=== PATIENT | male | born 1950 | race Caucasian/White ===

== ENCOUNTER 2018-02-28 09:30 | Day surgery (SDC) | payer OTHER ==
[2018-02-21 11:18] VITALS: BMI 27.3
[~2018-02-28 09:30] MED LIST: LACTATED RINGERS 1,000 ML IV SCH
[2018-02-28] MEDS ORDERED: LIDOCAINE 1% 20 ML VIAL (10MG/ML) FOR IV START INTRADERMA ONE (10:35)
[2018-02-28] MEDS ORDERED: PROPOFOL 10 MG/ML 20 ML VIAL IV ONE (10:36)
[2018-02-28 10:37] VITALS: RESP 16; TEMP 98.4
--- NOTE | 2018-02-28 10:39 | P.GSHP ---
History of Present Illness H&P Date: 02/28/18 Chief Complaint: History of colon polyps This is a 67-year-old male who presents today for colonoscopy. Patient has history of colon polyps. His last colonoscopy was 4 years ago. Past Medical History Past Medical History: COPD, GERD/Reflux, Hyperlipidemia, Hypertension Additional Past Medical History / Comment(s): GOUT. CURRENTLY HAS HIVES OF UNKNOWN ORIGIN-RESOLVED AT THIS TIME History of Any Multi-Drug Resistant Organisms: None Reported Past Surgical History: Back Surgery Additional Past Surgical History / Comment(s): COLONOSCOPY Past Anesthesia/Blood Transfusion Reactions: No Reported Reaction Smoking Status: Current every day smoker - Past Family History Mother Family Medical History: Cancer Additional Family Medical History / Comment(s): BREAST Medications and Allergies Home Medications Medication Instructions Recorded Confirmed Type Albuterol Sulfate [Proair 1 puff PO DAILY PRN 01/17/18 02/21/18 History Respiclick] Alfuzosin HCl [Uroxatral ER] 10 mg PO HS 01/17/18 02/21/18 History Allopurinol [Zyloprim] 300 mg PO DAILY 01/17/18 02/21/18 History Aspirin EC [Ecotrin Low Dose] 81 mg PO DAILY 01/17/18 02/21/18 History Atorvastatin [Lipitor] 80 mg PO HS 01/17/18 02/21/18 History Budesonide/Formoterol Fumarate 2 puff INHALATION BID 01/17/18 02/21/18 History [Symbicort 80-4.5 Mcg Inhaler] Loratadine [Claritin] 10 mg PO DAILY 01/17/18 02/21/18 History Multivitamin [Men's Multi-Vitamin] 1 each PO DAILY 01/17/18 02/21/18 History Naproxen 500 mg PO DAILY 01/17/18 02/21/18 History PARoxetine [Paxil] 20 mg PO DAILY 01/17/18 02/21/18 History Pramipexole Di-HCl [Mirapex] 0.167 mg PO TID 01/17/18 02/21/18 History Tiotropium [place] [Spiriva] 1 cap INHALATION DAILY 01/17/18 02/21/18 History amLODIPine BESYLATE [Norvasc] 5 mg PO HS 01/17/18 02/21/18 History guaiFENesin 200 mg PO DAILY PRN 01/17/18 02/21/18 History Allergies Allergy/AdvReac Type Severity Reaction Status Date / Time No Known Allergies Allergy Verified 02/28/18 10:18 Surgical - Exam Vital Signs Temp Pulse Resp BP Pulse Ox 98.4 F 94 16 147/79 94 L 02/28/18 10:35 02/28/18 10:35 02/28/18 10:35 02/28/18 10:35 02/28/18 10:35 - General well developed, no distress - Eyes PERRL - ENT normal pinna - Neck no masses - Respiratory normal expansion - Cardiovascular Rhythm: regular - Abdomen Abdomen: soft, non tender Assessment and Plan Assessment: History of colon polyps. We'll perform colonoscopy.
[2018-02-28 10:41] LABS: Glucose,Whole Blood 108 mg/dL (75-99)
--- NOTE | 2018-02-28 10:54 | P.OP ---
Date of Procedure: 02/28/18 Preoperative Diagnosis: History of colon polyp Postoperative Diagnosis: Rectal polyp Procedure(s) Performed: Colonoscopy Anesthesia: MAC Surgeon: Pan Heath Pathology: other (Rectal polyp) Condition: stable Disposition: PACU Description of Procedure: The patient's placed on the endoscopy table in the lateral position. He received IV sedation. Digital rectal exam was performed which revealed no abnormalities. Flexible colonoscope was then placed patient anus and passed throughout the entire colon. The ileocecal valve was visualized. Cecum, ascending and transverse colon appeared normal. The descending and sigmoid colon appeared normal. In the rectum there was a small polyp seen this removed a combination of snare and the cold forcep. Scope was withdrawn for patient.
[2018-02-28 11:30] VITALS: BP 148/89; PULSE 81
== END 2018-02-28 12:06 | disposition home or self-care (01) ==
LOC: ORWHC2ENDO 09:30
PROVIDERS: ATTEND Surgery
DX: Z12.11 Encounter for screening for malignant neoplasm of colon (principal); K62.1 Rectal polyp; K21.9 Gastro-esophageal reflux disease without esophagitis; J44.9 Chronic obstructive pulmonary disease, unspecified; Z86.010 Personal history of colon polyps; I10 Essential (primary) hypertension; E78.5 Hyperlipidemia, unspecified; M10.9 Gout, unspecified; F17.200 Nicotine dependence, unspecified, uncomplicated; Z79.82 Long term (current) use of aspirin; Z79.899 Other long term (current) drug therapy; Z79.1 Long term (current) use of non-steroidal anti-inflammatories (NSAID); Z79.51 Long term (current) use of inhaled steroids
CPT/HCPCS: 88305; 45385; J2704; 45380

== ENCOUNTER 2018-05-17 12:01 | Emergency (ER) | payer OTHER, MEDICARE ==
[2018-05-17 12:18] VITALS: BP 155/80; PULSE 92; RESP 18; TEMP 98.1
--- NOTE | 2018-05-17 13:15 | US ---
EXAMINATION TYPE: US venous doppler duplex LE LT DATE OF EXAM: 05/17/2018 1:09 PM COMPARISON: NONE CLINICAL HISTORY: Pain. SIDE PERFORMED: Left TECHNIQUE: The lower extremity deep venous system is examined utilizing real time linear array sonog jorge with graded compression, doppler sonography and color-flow sonography. VESSELS IMAGED: External Iliac Vein (EIV) Common Femoral Vein Deep Femoral Vein Greater Saphenous Vein * Femoral Vein Popliteal Vein Small Saphenous Vein * Proximal Calf Veins (* superficial vessels) Left Leg: Negative for DVT Grayscale, color doppler, spectral doppler imaging performed of the deep veins of the left lower extr emity. There is normal flow, compressibility, vascular waveforms. IMPRESSION: No ultrasound evidence for acute DVT in the left lower extremity.
--- NOTE | 2018-05-17 14:51 | ED ---
General Adult HPI - General Chief complaint: Recheck/Abnormal Lab/Rx Stated complaint: [facility] Time Seen by Provider: 05/17/18 12:15 Source: patient, RN notes reviewed Mode of arrival: ambulatory Limitations: no limitations - History of Present Illness Initial comments: This is a 67-year-old male who presents emergency Department because he's had bilateral leg swelling for a week. Patient states the swelling the left is a little bit bigger than the right but both have been swelling and normally that does not occur. Patient states he is a smoker. Patient states she has COPD. Patient states she also put salt on everything. Patient states he saw his primary medical care doctor and they wanted him to come in and get a ultrasound to rule out DVT in the left leg. Patient has been given a prescription for Lasix to start tonight and also is been given a prescription to be fitted for some stockings. Patient denies any difficulty breathing or shortness of breath patient denies any chest pain. Patient denies any previous cardiac problems. Patient has any history of congestive heart today. Patient denies any calf pain. He denies any injury or trauma. Patient denies any lightheadedness dizziness or near syncopal episode. - Related Data Home Medications Medication Instructions Recorded Confirmed Albuterol Sulfate [Proair 1 puff PO DAILY PRN 01/17/18 02/21/18 Respiclick] Alfuzosin HCl [Uroxatral ER] 10 mg PO HS 01/17/18 02/21/18 Allopurinol [Zyloprim] 300 mg PO DAILY 01/17/18 02/21/18 Aspirin EC [Ecotrin Low Dose] 81 mg PO DAILY 01/17/18 02/21/18 Atorvastatin [Lipitor] 80 mg PO HS 01/17/18 02/21/18 Budesonide/Formoterol Fumarate 2 puff INHALATION BID 01/17/18 02/21/18 [Symbicort 80-4.5 Mcg Inhaler] Loratadine [Claritin] 10 mg PO DAILY 01/17/18 02/21/18 Multivitamin [Men's Multi-Vitamin] 1 each PO DAILY 01/17/18 02/21/18 Naproxen 500 mg PO DAILY 01/17/18 02/21/18 PARoxetine [Paxil] 20 mg PO DAILY 01/17/18 02/21/18 Pramipexole Di-HCl [Mirapex] 0.167 mg PO TID 01/17/18 02/21/18 Tiotropium [place] [Spiriva] 1 cap INHALATION DAILY 01/17/18 02/21/18 amLODIPine BESYLATE [Norvasc] 5 mg PO HS 01/17/18 02/21/18 guaiFENesin 200 mg PO DAILY PRN 01/17/18 02/21/18 Allergies Allergy/AdvReac Type Severity Reaction Status Date / Time lisinopril AdvReac Nausea & Verified 05/17/18 12:19 Vomiting Review of Systems ROS Statement: Those systems with pertinent positive or pertinent negative responses have been documented in the HPI. ROS Other: All systems not noted in ROS Statement are negative. Past Medical History Past Medical History: COPD, GERD/Reflux, Hyperlipidemia, Hypertension Additional Past Medical History / Comment(s): GOUT. CURRENTLY HAS HIVES OF UNKNOWN ORIGIN-RESOLVED AT THIS TIME History of Any Multi-Drug Resistant Organisms: None Reported Past Surgical History: Back Surgery Additional Past Surgical History / Comment(s): COLONOSCOPY Past Anesthesia/Blood Transfusion Reactions: No Reported Reaction Past Psychological History: Depression Smoking Status: Current every day smoker Past Alcohol Use History: Daily Past Drug Use History: None Reported - Past Family History Mother Family Medical History: Cancer Additional Family Medical History / Comment(s): BREAST General Exam - General Exam Comments Initial Comments: GENERAL: Patient is well-developed and well-nourished. Patient is nontoxic and well- hydrated and is in no acute distress. ENT: Neck is soft and supple. No significant lymphadenopathy is noted. Oropharynx is clear. Moist mucous membranes. Neck has full range of motion without eliciting any pain. EYES: The sclera were anicteric and conjunctiva were pink and moist. Extraocular movements were intact and pupils were equal round and reactive to light. Eyelids were unremarkable. PULMONARY: Unlabored respirations. Good breath sounds bilaterally. No audible rales rhonchi or wheezing was noted. CARDIOVASCULAR: There is a regular rate and rhythm without any murmurs gallops or rubs. ABDOMEN: Soft and nontender with normal bowel sounds. No palpable organomegaly was noted. There is no palpable pulsatile mass. SKIN: Skin is clear with no lesions or rashes and otherwise unremarkable. NEUROLOGIC: Patient is alert and oriented x3. Cranial nerves II through XII are grossly intact. Motor and sensory are also intact. Normal speech, volume and content. Symmetrical smile. MUSCULOSKELETAL: Normal extremities with adequate strength and full range of motion. 1+ edema on the right leg 2+ edema on the left leg from the knee down LYMPHATICS: No significant lymphadenopathy is noted PSYCHIATRIC: Normal psychiatric evaluation. Limitations: no limitations Course Vital Signs 05/17/18 12:13 Temperature 98.1 F Pulse Rate 92 Respiratory 18 Rate Blood Pressure 155/80 O2 Sat by Pulse 88 L Oximetry Medical Decision Making - Medical Decision Making Ultrasound shows no DVT. Chest x-ray shows no pulmonary edema. I discussed smoking cessation for greater than 3 minutes. The risks of smoking were discussed with the patient including but not limited to risks of cancer, stroke, coronary artery disease and COPD. Also discussed with the patient were multiple methods of quitting smoking. Lastly we discussed the financial costs of smoking. Disposition Clinical Impression: Pedal edema Disposition: HOME SELF-CARE Condition: Good Additional Instructions: Patient should start her Lasix as prescribed by his physician. Patient should also get LYNNE hose which is also prescribed by his physician who Patient returns as any difficulty breathing or chest pain. Is patient prescribed a controlled substance at d/c from ED?: No Referrals: [facility],Clinic [Primary Care Provider] - 1-2 days Time of Disposition: 15:11
--- NOTE | 2018-05-17 15:08 | XR ---
EXAMINATION TYPE: XR chest 2V DATE OF EXAM: 05/17/2018 COMPARISON: NONE HISTORY: History of COPD and hypertension with shortness of breath. TECHNIQUE: Frontal and lateral views of the chest are obtained. FINDINGS: There is chronic parenchymal change with left basilar scarring and/or atelectasis. No larg e pleural effusion or pneumothorax is seen bilaterally. The cardiac silhouette size is enlarged. Th e osseous structures are intact. IMPRESSION: Cardiomegaly and chronic parenchymal changes with more focal left basilar linear scarring and/or atelectasis. No suspicious focal infiltrate is present.
== END 2018-05-17 15:19 | disposition home or self-care (01) ==
LOC: EC 12:01
DX: R60.0 Localized edema (principal); J44.9 Chronic obstructive pulmonary disease, unspecified; E78.5 Hyperlipidemia, unspecified; I10 Essential (primary) hypertension; M10.9 Gout, unspecified; F32.9 Major depressive disorder, single episode, unspecified; F17.200 Nicotine dependence, unspecified, uncomplicated; Z79.82 Long term (current) use of aspirin; Z79.51 Long term (current) use of inhaled steroids; Z79.1 Long term (current) use of non-steroidal anti-inflammatories (NSAID); Z79.899 Other long term (current) drug therapy; Z88.8 Allergy status to other drugs, medicaments and biological substances
CPT/HCPCS: 71046; 99284